=== PATIENT | female | born 1955 | race Hispanic/Latino ===

== ENCOUNTER 2022-06-24 06:30 | Day surgery (SDC) | payer OTHER ==
[2022-06-20 15:37] LABS: Absolute Lymphocytes (CBC) 2.1 K/uL (0.7-4.9); Hematocrit 35.7 % (36.0-45.0); MCV 91.5 fL (80-100); MPV 8.8 fL (7.6-11.3)
[2022-06-20 15:40] LABS: Protime INR 0.95
[2022-06-20 15:47] LABS: Potassium 3.8 mmol/L (3.5-5.1)
--- NOTE | 2022-06-20 16:24 | RAD REPORT ---
EXAM DESCRIPTION: RAD - Chest Pa And Lat (2 Views) - 06/20/2022 4:03 pm CLINICAL HISTORY: Pre op pending heart catheterization COMPARISON: CHEST PA AND LAT 2 VIEW dated 09/21/2010 FINDINGS: Lines: None. Lungs: No evidence of edema or pneumonia. Pleural: No significant pleural effusions or pneumothorax. Cardiac: The heart size is within normal limits. Mediastinum: Within normal limits. Bones: No acute fractures. Other: Surgical clips in the right upper quadrant. IMPRESSION: No acute cardiopulmonary disease.
--- NOTE | 2022-06-21 15:58 | EKG ---
Test Date: 2022-06-20 Test Time: 15:14:53 Packing Floor Worker: UMAIR MEASUREMENT RESULTS: Intervals: Rate: 58 TX: 154 QRSD: 92 QT: 432 QTc: 424 Bath: P: 40 TX: 154 QRS: -12 T: 17 INTERPRETIVE STATEMENTS: Sinus bradycardia Minimal voltage criteria for LVH, may be normal variant Borderline ECG No previous ECG available for comparison Electronically Signed On 06-21-22 15:57:21 POCKET OPERATOR by Joseph Jeffries
[2022-06-24] MEDS ORDERED: HEPA 1000U/500MLS 2,000 UNIT/1,000 ML BAG IV ONE (06:47)
[2022-06-24] MEDS ORDERED: LIDOCAINE 1% 20 ML MDV ONE (06:48)
[2022-06-24] MEDS ORDERED: MIDAZOLAM HCL 2 MG/2 ML INJ ONE (06:48)
[2022-06-24] MEDS ORDERED: FENTANYL CITR 100 MCG/2 ML ONE (06:48)
[2022-06-24] MEDS ORDERED: NITROGLYCERIN 100 MCG/ML SYR (for cath lab use only) IV ONE (06:49)
[2022-06-24] MEDS ORDERED: NITROGLYCERIN/D5W 25 MG/250 ML BTL IV ONE (06:49)
[2022-06-24] MEDS ORDERED: NA CHLORIDE 0.9% 0 ML IV ONE (06:49)
[2022-06-24] MEDS ORDERED: ATROPINE SULF 1 MG/10 ML SYR IV ONE (06:49)
[2022-06-24] MEDS ORDERED: NA CHLORIDE 0.9% 500 ML ONE (07:24)
[2022-06-24 07:50] VITALS: TEMP 97
[2022-06-24 10:03] VITALS: O2SAT 99
[2022-06-24 10:04] VITALS: BP 157/61
--- NOTE | 2022-06-24 12:59 | OP ---
Surgeon: Baljeet Doss MD Punch Press Operator Helper: Ms. Lula Gross. Procedures: Left heart catheterization, selective coronary arteriogram, common femoral artery angiog sumeet. Indication: Abnormal stress test. Procedure In Detail: The patient in the technical laboratory asst was prepped and draped in the routine sterile fashi on. Given Versed and fentanyl for sedation. A 6-Bengali sheath introduced in the right common femora l artery successfully using the Seldinger technique and 10 cc of Xylocaine. Aaron catheter left an d right were used to cannulate the left main and right main respectively. The patient had a very sma ll LAD with diffuse plaquing. She had a codominant system, 50% proximal circumflex, normal right cor onary artery. There were no complications. Blood Loss: 5 mL. Postoperative Diagnosis: [id number] coronary artery disease. Plan: Plan is for medical therapy. I am going to increase her pravastatin to 80 mg daily. I am goi ng to add Norvasc 5 mg daily. I will see her in the office in the next 2 weeks. She will be at bedr est for 2 hours after Angio-Seal. Common femoral artery angiogram was normal. MARQUEZ/FABIO Voice ID: [id number] Report ID: [id number]
== END 2022-06-24 09:57 | disposition home or self-care (01) ==
LOC: CCL 06:30
DX: I25.10 Atherosclerotic heart disease of native coronary artery without angina pectoris (principal); E78.2 Mixed hyperlipidemia; E03.9 Hypothyroidism, unspecified; Z82.49 Family history of ischemic heart disease and other diseases of the circulatory system
CPT/HCPCS: 93005; 85025; 80048; 36415; 85610; 85730; 71046; 93454; C1893; Q9966; C1760; G0269; J2250; J3010; J7040; J1644; J0583